=== PATIENT | female | born 1980 | race Caucasian/White ===

== ENCOUNTER 2019-01-21 11:24 | Emergency (ER) | payer BC ==
[2019-01-21] MEDS ORDERED: LORazepam 1 MG Tab PO ONE (11:54)
--- NOTE | 2019-01-21 12:47 | EDM.PDOC ---
ED HPI GENERAL MEDICAL PROBLEM - General Chief Complaint: Cardiovascular Problem Stated Complaint: arm numbness, chest pressure Time Seen by Provider: 01/21/19 11:30 Source of Information: Reports: Patient History Limitations: Reports: No Limitations - History of Present Illness INITIAL COMMENTS - FREE TEXT/NARRATIVE: chief complaint: panic attack vs heart This is a 38 year old female present to the ER with her Boyfriend. She reports one hour prior to arrival at ER started to have shaking, tremors, breathing fast. Chest felt tight. She reports was has been having increased stress and anxiety for the past 2 months. Her and her Boyfriend were having a discussion when these symptoms appeared. She denies any violence or argument. She reports difficulties in the relationship. past history of panic and anxiety disorder, has been under increased stress for the past 2 months. family history negative for cardiac events in women before 50 and men before 40 reports healthy and chronic medications Onset: Today, Gradual (stressors x 2 months) Onset Date: 01/21/19 Onset Time: 10:30 Location: Reports: Generalized Quality: Reports: Same as Previous Episode (similar to previous panic and anxiety attacks.) Severity: Moderate Improves with: Reports: None Worsens with: Reports: None Context: Reports: Other (difficulties in current relationship. denies violence or assault.) Associated Symptoms: Reports: Shortness of Breath (rapid breathing.), Weakness ( arms and legs feel weak) - Related Data Allergies Allergy/AdvReac Type Severity Reaction Status Date / Time No Known Allergies Allergy Verified 01/21/19 11:54 Home Meds: Home Meds Aspirin 325 mg PO ASDIRECTED 01/21/19 [History] Social & Family History - Living Situation & Occupation Living situation: Reports: with Significant Other (lives with SO and 2 children in [place], [place].) ED ROS GENERAL - Review of Systems Review Of Systems: See Below Constitutional: Reports: Other (having a panic attack upon arrival to ER) HEENT: Reports: No Symptoms Respiratory: Reports: No Symptoms Cardiovascular: Reports: No Symptoms Endocrine: Reports: No Symptoms GI/Abdominal: Reports: No Symptoms : Reports: No Symptoms, Other (IUD in place, amenorrhea for years) Musculoskeletal: Reports: No Symptoms Skin: Reports: No Symptoms Psychiatric: Reports: Anxiety Hematologic/Lymphatic: Reports: No Symptoms Immunologic: Reports: No Symptoms ED EXAM, GENERAL - Physical Exam Exam: See Below Exam Limited By: Other (hyperventalation) General Appearance: Alert, WD/WN, Anxious, Mild Distress Eye Exam: Bilateral Eye: Normal Inspection Ears: Normal External Exam, Normal Canal, Hearing Grossly Normal, Normal TMs Ear Exam: Bilateral Ear: Auricle Normal, Canal Normal, TM normal Nose: Normal Inspection, Normal Mucosa, No Blood Throat/Mouth: Normal Inspection, Normal Lips, Normal Teeth, Normal Gums, Normal Oropharynx, Normal Voice, No Airway Compromise Head: Atraumatic, Normocephalic Neck: Normal Inspection, Supple, Non-Tender, Full Range of Motion Respiratory/Chest: No Respiratory Distress, Lungs Clear, Normal Breath Sounds, No Accessory Muscle Use, Chest Non-Tender Cardiovascular: Normal Peripheral Pulses, Regular Rate, Rhythm, No Edema, No Gallop, No JVD, No Murmur, No Rub Peripheral Pulses: 2+: Radial (L), Radial (R) GI/Abdominal: Normal Bowel Sounds, Soft, Non-Tender, No Distention, No Abnormal Bruit, No Mass, Pelvis Stable Back Exam: Normal Inspection, Full Range of Motion Extremities: Normal Inspection, Normal Range of Motion, Non-Tender, No Pedal Edema, Normal Capillary Refill Neurological: Alert, Oriented, CN II-XII Intact, Normal Cognition, Normal Gait, Normal Reflexes, No Motor/Sensory Deficits Psychiatric: Anxious Skin Exam: Warm, Dry, Intact, Normal Color, No Rash Lymphatic: No Adenopathy Course - Vital Signs Last Recorded V/S: Last Vital Signs Temp 36.1 C 01/21/19 12:00 Pulse 101 H 01/21/19 12:00 Resp 22 H 01/21/19 12:00 BP 122/69 01/21/19 12:00 Pulse Ox 100 01/21/19 12:00 - Orders/Labs/Meds Orders: Active Orders 24 hr Category Date Time Status EKG Documentation Completion [RC] ASDIRECTED Care 01/21/19 11:46 Active Labs: Laboratory Tests 01/21/19 01/21/19 01/21/19 Range/Units 11:55 11:55 12:58 WBC 15.0 H (4.0-11.0) K/uL RBC 4.55 (3.80-5.80) M/uL Hgb 14.4 (11.5-16.5) g/dL Hct 41.7 (37.0-47.0) % MCV 92 (76-96) fL MCH 31.6 (27.0-32.0) pg MCHC 34.5 (31.0-35.0) g/dL RDW 12.9 (11.0-16.0) % Plt Count 404 (150-500) K/uL MPV 8.6 (6.0-10.0) fL Neut % (Auto) 62.1 (45.0-70.0) % Lymph % (Auto) 28.2 (20.0-40.0) % [place] % (Auto) 8.0 (3.0-10.0) % Eos % (Auto) 1.4 (1.0-5.0) % Baso % (Auto) 0.3 (0.0-0.5) % Neut # (Auto) 9.30 H (2.00-7.50) K/uL Lymph # (Auto) 4.22 H (1.50-4.00) K/uL [place] # (Auto) 1.19 H (0.20-0.80) K/uL Eos # (Auto) 0.21 (0.04-0.40) K/uL Baso # (Auto) 0.04 (0.02-0.10) K/uL Sodium 140 (136-145) mmol/L Potassium 3.8 D (3.5-5.1) mmol/L Chloride 103 (98-107) mmol/L Carbon Dioxide 23.0 (21.0-32.0) mmol/L Anion Gap 17.8 H (5.0-15.0) mmol/L BUN 9 D (8-26) mg/dL Creatinine 0.83 (0.55-1.02) mg/dL Est Cr Clr Drug Dosing TNP Estimated GFR (MDRD) > 60 (>60) MLS/MIN BUN/Creatinine Ratio 10.8 (6-25) Glucose 93 (74-100) mg/dL Calcium 9.1 (8.5-10.1) mg/dL Total Bilirubin 0.2 D (0.0-1.0) mg/dL AST 18 (15-37) U/L ALT 23 (12-78) U/L Alkaline Phosphatase 75 (46-116) U/L Troponin I < 0.017 (0.000-0.060) ng/mL Total Protein 7.9 (6.4-8.2) g/dL Albumin 4.0 (3.4-5.0) g/dL Globulin 3.9 (2.2-4.2) g/dL Albumin/Globulin Ratio 1.0 (0.8-2.0) Urine Color Yellow Urine Appearance Clear (CLEAR) Urine pH 7.0 (5.0-8.0) Ur Specific [place] 1.015 (1.003-1.030) Urine Protein Negative (NEGATIVE) mg/dL Urine Glucose (UA) Negative (NEGATIVE) mg/dL Urine Ketones Negative (NEGATIVE) mg/dL Urine Occult Blood Negative (NEGATIVE) Urine Nitrite Negative (NEGATIVE) Urine Bilirubin Negative (NEGATIVE) Urine Urobilinogen 0.2 (0.2-1.0) E.U./dL Ur Leukocyte Esterase Negative (NEGATIVE) Urine RBC Not seen /HPF Urine WBC 0-5 H /HPF Ur Squamous Epith Cells Moderate /HPF Urine Bacteria Moderate H /HPF Meds: Medications Discontinued Medications Generic Name Dose Route Start Last Admin Trade Name Freq PRN Reason Stop Dose Admin Lorazepam 1 mg 01/21/19 11:54 01/21/19 11:50 Ativan PO 01/21/19 11:55 1 mg ONETIME ONE Administration - Re-Assessments/Exams Free Text/Narrative Re-Assessment/Exam: 01/21/19 Ms. Valencia is having a panic attack, she worried she is having a heart attack. vital signs are stable, telemetry SR will do labs to rule out any cardiac given Ativan 1 mg po now a: panic attack P: await lab results 01/21/19 12:52 Ms. Valencia is relaxed and breathing and anxiety has resolved labs are negative except for WBC 15.0 and anion gap 17.8 Troponin <0.017 , tele SR without ectopy will order urine with micro to rule any bladder infection otherwise will plan to discharge to home with sedation medication follow up with Primary Care this week return to ER if symptoms return or has any concerns. Ms. Valencia and her SO agree with plan of care. 01/21/19 13:28 urine clear will discharge to home with SO given Ativan 1mg take one po bid x 3 days follow up in Primary Care RTC or ER if not improved or symptoms worsen Departure - Departure Time of Disposition: 13:29 Disposition: Home, Self-Care 01 Condition: Good Clinical Impression: Panic attack as reaction to stress - Discharge Information *PRESCRIPTION DRUG MONITORING PROGRAM REVIEWED*: Not Applicable *COPY OF PRESCRIPTION DRUG MONITORING REPORT IN PATIENT ESTRADA: Not Applicable Instructions: Panic Attack, [id number], Lorazepam tablets Forms: ED Department Discharge Care Plan Goals: Panic/Anxiety attack -sedation medication. take one by mouth two times a day as needed for anxiety -rest, push fluids -advised no alcohol or other drugs/meds while taking medications -follow up in [facility] Care for recheck this week. Return to ER if symptoms return or has any concerns. - Problem List & Annotations (1) Panic attack as reaction to stress SNOMED Code(s): 227114909 Code(s): F41.0 - PANIC DISORDER [EPISODIC PAROXYSMAL ANXIETY]; F43.0 - ACUTE STRESS REACTION Status: Acute Priority: High - Problem List Review Problem List Initiated/Reviewed/Updated: Yes - My Orders Last 24 Hours: My Active Orders 01/21/19 11:46 EKG Documentation Completion [RC] ASDIRECTED - Assessment/Plan Last 24 Hours: My Active Orders 01/21/19 11:46 EKG Documentation Completion [RC] ASDIRECTED Plan: Panic/Anxiety attack -sedation medication. take one by mouth two times a day as needed for anxiety -rest, push fluids -advised no alcohol or other drugs/meds while taking medications -follow up in [facility] Care for recheck this week. Return to ER if symptoms return or has any concerns.
[2019-01-21] MEDS ORDERED: LORazepam 1 MG Tab ONE (13:10)
== END 2019-01-21 13:15 | disposition home or self-care (01) ==
LOC: LB.ED 11:24
DX: F41.0 Panic disorder [episodic paroxysmal anxiety] (principal); Z79.82 Long term (current) use of aspirin; F43.0 Acute stress reaction
CPT/HCPCS: 36415; 80053; 81001; 84484; 85025; 93005; 99283; A9270